=== PATIENT | female | born 2000 | race African-American/Black ===

== ENCOUNTER 2020-04-09 20:13 | Emergency (ER) | payer MEDICAID ==
[~2020-04-09] VITALS: Ht 162.6 cm; Wt 79.0 kg
[2020-04-09] MEDS ORDERED: IBUPROFEN 600MG TABLET PO ONE (21:00)
[2020-04-09 22:24] VITALS: BP 111/75
== END 2020-04-09 22:25 | disposition home or self-care (01) ==
LOC: ER 20:13
DX: S93.402A Sprain of unspecified ligament of left ankle, initial encounter (principal); J45.909 Unspecified asthma, uncomplicated; Z98.890 Other specified postprocedural states; W18.09XA Striking against other object with subsequent fall, initial encounter; Y93.89 Activity, other specified; Y92.488 Other paved roadways as the place of occurrence of the external cause
CPT/HCPCS: 73610; 73630; 99284

== ENCOUNTER 2022-09-03 09:39 | Emergency (ER) | payer MEDICAID ==
[~2022-09-03] VITALS: Ht 162.6 cm; Wt 99.0 kg
[2022-09-03] MEDS ORDERED: IBUPROFEN 600MG TABLET PO STA (11:17)
[2022-09-03 11:46] VITALS: BP 116/55
[2022-09-03] MEDS ORDERED: IBUP-2029 MT (11:59)
[2022-09-03] MEDS ORDERED: [UNRECOGNIZED DRUG - CODE] MT (11:59)
== END 2022-09-03 13:15 | disposition home or self-care (01) ==
LOC: ER 09:58
DX: R07.9 Chest pain, unspecified (principal); B34.9 Viral infection, unspecified; R94.31 Abnormal electrocardiogram [ECG] [EKG]; J45.909 Unspecified asthma, uncomplicated; Z98.890 Other specified postprocedural states
CPT/HCPCS: 71045; 81025; 93005; 99283